=== PATIENT | male | born 1940 | race Two or more races ===

== ENCOUNTER 2023-07-04 19:41 | Emergency (ER) | payer OTHER ==
[~2023-07-04] VITALS: Ht 160 cm; Wt 86.2 kg
[2023-07-04] MEDS ORDERED: COZAAR25 MG PO (20:08)
[2023-07-04] MEDS ORDERED: BACLOFEN20 MG PO (20:08)
[2023-07-04] MEDS ORDERED: FENOFIBRATE150 MG PO (20:09)
[2023-07-04] MEDS ORDERED: ISOSORBIDE DINI30 MG PO (20:09)
[2023-07-04] MEDS ORDERED: 0.9 % SODIUM CHLORIDE 1,000 ML IV SCH (20:30)
[2023-07-04] MEDS ORDERED: NITROGLYCERIN IN 5 % DEXTROSE 250 ML IV SCH (20:30)
[2023-07-04 20:44] LABS: HEMATOCRIT 41.2 % (39.0-48.0); HEMOGLOBIN 13.9 g/dL (13-16.00); MEAN CORPUSCULAR HEMOGLOBIN 28.1 pg (27.00-32.0); MEAN CORPUSCULAR HGB CONC 33.8 g/dl (32.0-36.0); PLATELET COUNT 174 K/uL (150-450); RED BLOOD COUNT 4.96 M/uL (4.00-6.00); RED CELL DISTRIBUTION WIDTH 14.1 % (11.5-14.5)
[2023-07-04] MEDS ORDERED: ASPIRIN 325 MG TABLET PO ONE (20:45)
[2023-07-04] MEDS ORDERED: TICAGRELOR 90 MG TABLET PO ONE (20:45)
[2023-07-04 21:15] LABS: BILIRUBIN TOTAL 0.45 mg/dL (0.3-1.2); CALCIUM 9.2 mg/dL (8.5-10.1); CREATININE SERUM 1.2 mg/dL (0.70-1.30); GFR 57.96; GLOBULINA 4.7 G/DL (2.4-3.5); POTASSIUM 3.58 mEq/L (3.5-5.1); TOTAL PROTEIN 8.7 gm/dL (6.4-8.2)
[2023-07-04 21:35] LABS: INR 1.11; PARTIAL THROMBOPLASTIN TIME 28.5 SECONDS (22.0-34.0); PROTHROMBIN TIME 11.6 SECONDS (9.0-11.5)
[2023-07-04] MEDS ORDERED: TOPROL XL25 MG (21:41)
[2023-07-04] MEDS ORDERED: NORVASC10 MG (21:41)
[2023-07-04] MEDS ORDERED: ISOSORBIDE DINI30 MG (21:42)
[2023-07-04] MEDS ORDERED: COZAAR100 MG (21:42)
[2023-07-04] MEDS ORDERED: HYDROCHLOROTHIA25 MG (21:42)
[2023-07-05 03:26] LABS: PH,URINE 7.5 (5.0-8.0); URINE APPEARANCE Clear; URINE BILIRRUBIN Negative (NEGATIVE); URINE BLOOD Moderate; URINE COLOR Yellow; URINE GLUCOSE Negative (NEGATIVE); URINE LEUKOCYTE Negative; URINE NITRATE Negative; URINE PROTEIN 30 (NEGATIVE)
[2023-07-05 03:29] LABS: URINE BACTERIA 12.5 uL (0.0-1933); URINE RBC 191.1 uL (0.0-20.8); URINE WBC 8.4 uL (0.0-23.2)
[2023-07-05 03:32] LABS: URINE EPITHELIAL CELLS 1.3 uL (0.0-38.8)
[2023-07-05] MEDS ORDERED: SUCRALFATE 1 G TABLET PO ONE (09:30)
== END 2023-07-05 17:47 | disposition home or self-care (01) ==
LOC: ER 19:41
PROVIDERS: General Practice
DX: R07.89 Other chest pain (principal); I10 Essential (primary) hypertension; Z86.79 Personal history of other diseases of the circulatory system
CPT/HCPCS: 36415; 51702; 71045; 93041; 96365; 99285; J3490